=== PATIENT | female | born 1990 | race Caucasian/White ===

== ENCOUNTER 2017-05-06 17:06 | Inpatient (IN) ==
[2017-05-06] MEDS ORDERED: BUTORPHANOL 2 MG/ML VIAL IV PRN (18:40)
[2017-05-06] MEDS ORDERED: LACTATED RINGERS 250 ML IV ONE (18:40)
[2017-05-06] MEDS ORDERED: FAMOTIDINE 20 MG/2 ML VIAL IV ONE (18:42)
[2017-05-06] MEDS ORDERED: LACTATED RINGERS 1,000 ML IV ONE (18:42)
[2017-05-06] MEDS ORDERED: CITRIC ACID/SODIUM CITRATE 30 ML UDCUP PO ONE (18:42)
[2017-05-06] MEDS ORDERED: LACTATED RINGERS 250 ML IV PRN (18:43)
[2017-05-06] MEDS ORDERED: hydrOXYzine HCL 25 MG/1 ML VIAL IM PRN (18:43)
[2017-05-06] MEDS ORDERED: diphenhydrAMINE 50 MG/1 ML VIAL IV PRN ×2 (18:43)
[2017-05-06] MEDS ORDERED: ePHEDrine 50 MG/ML AMP IV PRN (18:43)
[2017-05-06] MEDS ORDERED: PROMETHAZINE 25 MG/1 ML VIAL IM ONE (18:43)
[2017-05-06] MEDS ORDERED: fentaNYL 2 MCG/ROPIV 0.2% EPID 150 ML EPIDURAL SCH (19:00)
[2017-05-06] MEDS ORDERED: OXYTOCIN/LR 20 UNIT/1,000 ML BAG IV SCH (19:00)
[2017-05-06] MEDS: LACTATED RINGERS 1,000 ML IV SCH ×3 (19:01→21:03)
[2017-05-06] MEDS: ONDANSETRON 4 MG/2 ML VIAL IV PRN (19:02)
[2017-05-06 19:33] LABS: Basophils % 0.3 % (0.0-0.8); Eosinophils # 0.1 10*3/uL (0.0-0.87); Hematocrit 32.3 VOL% (35.7-47.0); Hemoglobin 10.6 GM/DL (12.0-16.0); Immature Granulocytes % 0.4 %; Immature Granulocytes Absolute 0.04 #; Lymphocytes # 2.5 10*3/uL (1.4-4.0); Lymphocytes % 24.8 % (21.3-54.2); Mean Corpuscular HGB Conc 32.8 GM/DL (32-36); Mean Corpuscular Hemoglobin 32 PG (27-34); Mean Platelet Volume 11.6 FL (9.6-12.0); Monocytes # 0.9 10*3/uL (0.11-0.8); Monocytes % 9.2 % (1.7-12.7); Neutrophils # 6.5 10*3/uL (1.4-7.4); Neutrophils % 64.3 % (38.7-73.9); Platelet Count 176 T/CUMM (130-400); Red Blood Count 3.33 MC/CUMM (3.8-5.5); Red Cell Distribution Width 13.2 % (9.3-17.3); White Blood Count 10.1 T/CUMM (4-12)
[2017-05-06 19:54] LABS: Alanine Aminotransferase < 9 U/L (13-56); Albumin 2.5 G/DL (3.4-5.0); Alkaline Phosphatase 113 U/L (45-117); Aspartate Amino Transferase 10 U/L (0-37); Bilirubin,Total < 0.39 MG/DL (0.2-1.0); Blood Urea Nitrogen 6 MG/DL (7-18); Calcium 8.7 MG/DL (8.5-10.1); Glucose 82 MG/DL (74-106); Osmolality,Calculated 273.5 MOS/KG (273-304); Potassium 3.9 MMOL/L (3.5-5.1); Sodium 139 MMOL/L (136-145)
[2017-05-06] MEDS ORDERED: TERBUTALINE 1 MG/1 ML VIAL SUBCUT ONE ×2 (21:10)
[2017-05-07] MEDS: ONDANSETRON 4 MG/2 ML VIAL IV PRN (00:04)
[2017-05-07] MEDS: LACTATED RINGERS 1,000 ML IV SCH (00:20)
[2017-05-07] MEDS ORDERED: miSOPROStol 200 MCG TABLET ONE (01:09)
[2017-05-07] MEDS ORDERED: HYDROCORTISONE 2.5% RECTAL CREAM 30 GM TUBE TOP PRN (01:45)
[2017-05-07] MEDS ORDERED: DIPH/TET/ACEL PERT BOOSTER VACCINE 0.5 ML VIAL IM ONE (01:45)
[2017-05-07] MEDS ORDERED: ACETAMINOPHEN 325 MG TABLET PO PRN (01:45)
[2017-05-07] MEDS ORDERED: BENZOCAINE 20%/MENTHOL 0.5% SPRAY 56 GM CAN TOP PRN (01:45)
[2017-05-07] MEDS ORDERED: WITCH HAZEL PADS 100/JAR TOP PRN (01:45)
[2017-05-07] MEDS ORDERED: oxyCODONE/ACETAMINOPHEN 5-325 MG TABLET PO PRN (01:45)
[2017-05-07] MEDS ORDERED: LANOLIN 50% CREAM 0.3 OZ TUBE TOP PRN (01:45)
[2017-05-07] MEDS ORDERED: ONDANSETRON 4 MG/2 ML VIAL IV PRN (01:45)
[2017-05-07] MEDS ORDERED: OXYTOCIN/LR 20 UNIT/1,000 ML BAG IV ONE (01:45)
[2017-05-07] MEDS ORDERED: BISACODYL 10 MG SUPP RECTAL PRN (01:45)
[2017-05-07] MEDS ORDERED: RHO(D) IMMUNE GLOBULIN 300 MCG SYRINGE IM ONE (01:45)
[2017-05-07] MEDS ORDERED: MEASLES/MUMPS/RUBELLA VACCINE 0.5 ML VIAL SUBCUT ONE (01:45)
[2017-05-07] MEDS: IBUPROFEN 800 MG TABLET PO PRN (05:39)
[2017-05-07 06:17] LABS: Basophils % 0.2 % (0.0-0.8); Eosinophils % 0.2 % (0.00-10.9); Hematocrit 30.2 VOL% (35.7-47.0); Hemoglobin 10.1 GM/DL (12.0-16.0); Immature Granulocytes % 0.6 %; Immature Granulocytes Absolute 0.08 #; Lymphocytes % 14.8 % (21.3-54.2); Mean Corpuscular HGB Conc 33.4 GM/DL (32-36); Mean Corpuscular Hemoglobin 32 PG (27-34); Mean Corpuscular Volume 94.1 FL (87-102); Monocytes # 1.2 10*3/uL (0.11-0.8); Monocytes % 8.8 % (1.7-12.7); Neutrophils % 75.4 % (38.7-73.9); Platelet Count 162 T/CUMM (130-400); Red Blood Count 3.21 MC/CUMM (3.8-5.5); Red Cell Distribution Width 13.2 % (9.3-17.3); White Blood Count 13.3 T/CUMM (4-12)
[2017-05-07] MEDS: DOCUSATE SODIUM 100 MG CAPSULE PO SCH ×2 (10:38→20:01)
[2017-05-07] MEDS: oxyCODONE/ACETAMINOPHEN 5-325 MG TABLET PO PRN (20:02)
[2017-05-08 07:39] VITALS: BP 97/58
[2017-05-08] MEDS: DOCUSATE SODIUM 100 MG CAPSULE PO SCH (08:10)
[2017-05-08] MEDS: IBUPROFEN 800 MG TABLET PO PRN (11:16)
[2017-05-08] MEDS: oxyCODONE/ACETAMINOPHEN 5-325 MG TABLET PO PRN (11:17)
== END 2017-05-08 14:45 | disposition home or self-care (01) | DRG 775 ==
LOC: N.LDOUT 17:06 → N.LD 17:07 → N.OB 05-07 11:06
PROVIDERS: ADMIT Obstetrics & Gynecology; ATTEND Obstetrics & Gynecology

== ENCOUNTER 2021-12-18 16:09 | Inpatient (IN) ==
[2021-12-18] MEDS ORDERED: ACETAMINOPHEN 500 MG TABLET PO STA (16:34)
[2021-12-18] MEDS ORDERED: ALBUTEROL 2.5 MG/3 ML NEB RESP TX PRN (17:37)
[2021-12-18] MEDS ORDERED: ONDANSETRON 4 MG/2 ML VIAL IV PRN (17:37)
[2021-12-18] MEDS ORDERED: hydrOXYzine HCL 10 MG TABLET PO PRN (17:47)
[2021-12-18] MEDS ORDERED: HEPARIN/NACL 0.9% 2 UNITS/ML 1,000 UNIT/500 ML BAG IV ONE (17:47)
[2021-12-18] MEDS ORDERED: ALTEPLASE 6 MG in SODIUM CHLORIDE 0.9% 120 ML IV SCH (18:00)
[2021-12-18] MEDS ORDERED: SODIUM CHLORIDE 0.9% 1,000 ML IV SCH ×2 (18:00)
[2021-12-18] MEDS ORDERED: HEPARIN DRIP 25,000 UNITS/500 ML PREMIX IV SCH ×4 (18:00→21:00)
[2021-12-18] MEDS: SODIUM CHLORIDE 0.9% 1,000 ML IV SCH (18:00)
[2021-12-18] MEDS ORDERED: MIDAZOLAM 2 MG/2 ML VIAL ONE (18:06)
[2021-12-18] MEDS ORDERED: HYDROmorphone 1 MG/1 ML SYRINGE ONE ×2 (18:06→18:23)
[2021-12-18] MEDS ORDERED: LORazepam 1 MG TABLET PO PRN (18:07)
[2021-12-18 18:17] VITALS: BP 116/77
[2021-12-18] MEDS: busPIRone 10 MG TABLET PO SCH ×2 (21:08→21:31)
[2021-12-18] MEDS: OLANZapine 5 MG TABLET PO SCH ×2 (21:08→21:32)
[2021-12-18 22:12] LABS: Basophils % 0.4 % (0.0-0.8); Hematocrit 34.5 VOL% (35.7-47.0); Hemoglobin 11.1 GM/DL (12.0-16.0); Immature Granulocytes % 0.4 %; Immature Granulocytes Absolute 0.04 #; Lymphocytes # 2.7 10*3/uL (1.4-4.0); Lymphocytes % 27.9 % (21.3-54.2); Mean Corpuscular HGB Conc 32.2 GM/DL (32-36); Mean Corpuscular Volume 91.5 FL (87-102); Mean Platelet Volume 10.1 FL (9.6-12.0); Monocytes # 0.7 10*3/uL (0.11-0.8); Monocytes % 6.8 % (1.7-12.7); Neutrophils % 64.5 % (38.7-73.9); Platelet Count 248 T/CUMM (130-400); Red Blood Count 3.77 MC/CUMM (3.8-5.5); Red Cell Distribution Width 13.2 % (9.3-17.3); White Blood Count 9.8 T/CUMM (4-12)
[2021-12-18 22:27] LABS: PT Patient Result 10.9 SECS (10.1-12.1); Partial Thromboplastin Time 41.5 SECS (23.7-32.9)
[2021-12-18 22:31] LABS: Alanine Aminotransferase 26 U/L (13-56); Albumin 2.8 G/DL (3.4-5.0); Alkaline Phosphatase 89 U/L (45-117); Aspartate Amino Transferase 25 U/L (0-37); Bilirubin,Total < 0.39 MG/DL (0.20-1.00); Blood Urea Nitrogen 9 MG/DL (7-18); Calcium 8.4 MG/DL (8.5-10.1); Carbon Dioxide 25 MMOL/L (21-32); Chloride 111 MMOL/L (98-107); Glucose 105 MG/DL (74-106); Osmolality,Calculated 279.3 MOS/KG (273-304); Sodium 141 MMOL/L (136-145); Total Protein 6.3 G/DL (6.4-8.2)
[2021-12-18] MEDS: ACETAMINOPHEN 325 MG TABLET PO PRN (23:20)
[2021-12-19] MEDS: SODIUM CHLORIDE 0.9% 1,000 ML IV SCH ×2 (03:12→05:29)
[2021-12-19] MEDS ORDERED: MORPHINE 2 MG/1 ML SYRINGE IV PRN (03:53)
[2021-12-19 04:04] LABS: Basophils % 0.5 % (0.0-0.8); Hematocrit 32.4 VOL% (35.7-47.0); Hemoglobin 10.4 GM/DL (12.0-16.0); Immature Granulocytes % 0.4 %; Immature Granulocytes Absolute 0.03 #; Lymphocytes # 2.7 10*3/uL (1.4-4.0); Lymphocytes % 34.4 % (21.3-54.2); Mean Corpuscular HGB Conc 32.1 GM/DL (32-36); Mean Corpuscular Volume 92.6 FL (87-102); Monocytes # 0.7 10*3/uL (0.11-0.8); Neutrophils % 55.7 % (38.7-73.9); Red Cell Distribution Width 13.2 % (9.3-17.3); White Blood Count 7.8 T/CUMM (4-12)
[2021-12-19 04:05] LABS: Platelet Count 194 T/CUMM (130-400)
[2021-12-19 04:10] LABS: PT Patient Result 11.4 SECS (10.1-12.1)
[2021-12-19 04:11] LABS: Calcium 8.1 MG/DL (8.5-10.1); Osmolality,Calculated 277.4 MOS/KG (273-304); Potassium 3.8 MMOL/L (3.5-5.1)
[2021-12-19 04:34] LABS: Free T4 (Free Thyroxine) 1.22 NG/DL (0.76-1.46); Thyroid Stimulating Hormone 8.33 uIU/ml (0.358-3.74)
[2021-12-19] MEDS: LEVOTHYROXINE 50 MCG TABLET PO SCH (06:32)
[2021-12-19] MEDS ORDERED: METHOCARBAMOL 500 MG TABLET PO PRN (07:21)
[2021-12-19] MEDS: OLANZapine 5 MG TABLET PO SCH ×2 (08:44→20:51)
[2021-12-19] MEDS: busPIRone 10 MG TABLET PO SCH ×2 (08:45→20:51)
[2021-12-19] MEDS: PANTOPRAZOLE 40 MG TABLET PO SCH (08:45)
[2021-12-19] MEDS ORDERED: HYDROmorphone 1 MG/1 ML SYRINGE IV ONE (10:03)
[2021-12-19] MEDS: APIXABAN 5 MG TABLET PO SCH ×2 (10:41→20:52)
[2021-12-19] MEDS: ACETAMINOPHEN 325 MG TABLET PO PRN (14:16)
[2021-12-20 02:59] LABS: Basophils % 0.6 % (0.0-0.8); Hematocrit 32.5 VOL% (35.7-47.0); Hemoglobin 10.4 GM/DL (12.0-16.0); Immature Granulocytes % 0.3 %; Immature Granulocytes Absolute 0.02 #; Lymphocytes # 2.1 10*3/uL (1.4-4.0); Lymphocytes % 29.8 % (21.3-54.2); Mean Corpuscular Volume 92.1 FL (87-102); Mean Platelet Volume 9.9 FL (9.6-12.0); Monocytes # 0.7 10*3/uL (0.11-0.8); Monocytes % 9.5 % (1.7-12.7); Neutrophils % 59.8 % (38.7-73.9); Platelet Count 192 T/CUMM (130-400); Red Blood Count 3.53 MC/CUMM (3.8-5.5); Red Cell Distribution Width 13.2 % (9.3-17.3); White Blood Count 7.1 T/CUMM (4-12)
[2021-12-20 03:16] LABS: Calcium 8.6 MG/DL (8.5-10.1); Osmolality,Calculated 273.7 MOS/KG (273-304); Potassium 4.1 MMOL/L (3.5-5.1)
[2021-12-20] MEDS: LEVOTHYROXINE 50 MCG TABLET PO SCH (06:07)
[2021-12-20] MEDS: APIXABAN 5 MG TABLET PO SCH (08:19)
[2021-12-20] MEDS: OLANZapine 5 MG TABLET PO SCH (08:20)
[2021-12-20] MEDS: busPIRone 10 MG TABLET PO SCH (08:20)
[2021-12-20] MEDS: PANTOPRAZOLE 40 MG TABLET PO SCH (08:20)
[2021-12-20 14:03] LABS: DRVVT Screen Ratio 1.07 ratio (<1.20); INR 1.2 (0.9-1.1)
[2021-12-20 14:30] LABS: Protein S Ag (Free) 85 % (50 - 160)
[2021-12-20 15:05] LABS: Protein C Activity Plasma 88 % (70 - 150)
[2021-12-20 15:31] LABS: Protein S Activity Plasma 86 % (50 - 160)
[2021-12-21 11:21] LABS: Protein C Antigen 79 % (72-160)
[2021-12-24 09:12] LABS: F5DNA Reviewed By SEE COMMENTS; Factor V Leiden (R506Q) Mutati Negative (Negative)
== END 2021-12-20 10:38 | disposition home or self-care (01) | DRG 176 ==
LOC: N.ED 16:09 → SUATTDRO 17:37 → N.EDINP 17:37 → N.CC 18:11
PROVIDERS: ADMIT Internal Medicine; ATTEND Internal Medicine